=== PATIENT | male | born 1930 | race Caucasian/White ===

== ENCOUNTER → 2016-09-18 | Outpatient (CLI) | payer OTHER, MEDICARE | LOC: FLAB 12:47 → EDSTATUS 12:49 → FIMAGING 12:51 | PROVIDERS: ATTEND Internal Medicine | DX: M51.36 Other intervertebral disc degeneration, lumbar region (principal) ==

== ENCOUNTER → 2017-06-26 | Outpatient (CLI) | payer OTHER, MEDICARE | LOC: FCPNEURO 21:30 | PROVIDERS: ATTEND Psychiatry & Neurology Sleep Medicine | DX: G47.33 Obstructive sleep apnea (adult) (pediatric) (principal) ==

== ENCOUNTER → 2017-10-28 | Outpatient (CLI) | payer OTHER, MEDICARE | LOC: FCPNEURO 21:00 | PROVIDERS: ATTEND Psychiatry & Neurology Sleep Medicine | DX: G47.33 Obstructive sleep apnea (adult) (pediatric) (principal) ==

== ENCOUNTER 2018-03-24 11:08 | Emergency (ER) | payer OTHER, MEDICARE ==
[2018-03-24 11:25] VITALS: BP 153/97
[2018-03-24] MEDS ORDERED: LORazepam 1 MG TAB ONE (11:43)
[2018-03-24] MEDS ORDERED: LORazepam 1 MG TAB PO ONE (11:44)
--- NOTE | 2018-03-24 11:54 | EDPHY ---
H & P Time Seen by Provider: 03/24/18 11:31 HPI/ROS: HPI Anxiety. 88-year-old male by private vehicle with care provider. He comes from the [facility] assisted living facility. He he presents with complaint of anxiety. He has had some depression secondary to his brother dying about 3 months ago. He however denies feeling significantly depressed at this time and denies suicidal ideation. At the [facility] he filled out a questionnaire describing his condition. This triggered a suicide prevention protocol and he automatically had to be seen in the emergency department for further evaluation. He states that he would like treatment for his anxiety. He has no other complaint. He has been on Ativan in the past for his anxiety and this has worked well for him. ROS: Constitutional: No fever, no chills. As above. Eyes: No discharge. No changes in vision. ENT: No sore throat. No nasal congestion or rhinorrhea. Respiratory: No cough. No shortness of breath. Cardiac: No chest pain, no palpitations. Gastrointestinal: No abdominal pain, no vomiting, no diarrhea. Genitourinary: No hematuria. No dysuria or increased frequency with urination. Musculoskeletal: No back pain. No neck pain. No myalgias or arthralgias. Skin: No rashes. Neurological: No headache. No focal weakness or altered sensation. Past medical history: Hyperlipidemia, depression, anxiety, dementia, recent surgery for skin cancer on his left face. Social history: Nonsmoker. No alcohol. Here with care provider from [facility] Physical Exam: General Appearance: Alert, no distress. This patient is responding to questions appropriately and in full sentences. This patient appears well- hydrated and well-nourished. Eyes: Pupils equal and round no pallor or injection. No lid edema, erythema or injection. Respiratory: There are no retractions, lungs are clear to auscultation with good air movement bilaterally. Cardiovascular: Regular rate and rhythm. No murmur. Gastrointestinal: Abdomen is soft and nontender, no masses, bowel sounds normal. No focal tenderness at McBurney's point. No Dailey sign. Neurological: Motor sensory function is grossly intact. Cranial nerves are normal. Skin: Warm and dry, no rashes. Recent surgery on left face. No evidence of infection. Musculoskeletal: Neck is supple and nontender. Extremities are symmetrical. All joints range without pain or impingement. Psychiatric: No agitation. No depression. Database: EKG: Imaging: Procedures: Emergency department course: Triage vital signs reviewed. He is moderately hypertensive. Triage vital signs otherwise normal. This patient is not suicidal. I do not believe he requires Behavioral Health consultation at this time. He was given 1 mg of oral Ativan in the emergency department feared he felt better after this. I will write him for a limited prescription of this medication to treat his anxiety. He will follow up with his primary care physician and psychiatrist for ongoing management. This was discussed with his care provider as well. He feels comfortable returning to the [facility]. He and his care provider understand follow-up. Return to emergency department precautions thoroughly reviewed. Patient was discharged in good condition. Differential Diagnosis: The differential diagnosis on this patient includes but is not limited to anxiety. Suicidal ideation, major depression unlikely. This represents a partial list of diagnoses considered. These considerations are based on history , physical exam, past history, reassessment and diagnostic testing. Smoking Status: Former smoker Constitutional: Initial Vital Signs Temperature (C) 36.4 C 03/24/18 11:23 Heart Rate 80 03/24/18 11:23 Respiratory Rate 18 03/24/18 11:23 Blood Pressure 153/97 H 03/24/18 11:23 O2 Sat (%) 95 03/24/18 11:23 O2 Delivery Mode Room Air Allergies/Adverse Reactions: codeine [Codeine] Allergy (Mild, Verified 03/24/18 11:20) Home Medications: Medication Instructions Recorded Aspirin EC [Aspirin EC 81 mg] 81 mg PO DAILY 06/27/11 Cholecalciferol (Vitamin D3) 10,000 unit PO 06/27/11 [Vitamin D] DONEPEZIL HCL [Aricept] 23 mg PO DAILY 06/27/11 QUETIAPINE FUMARATE [Seroquel Xr] 200 mg PO HS 06/27/11 SIMVASTATIN [Zocor] 80 mg PO DAILY 06/27/11 Venlafaxine Xr [Effexor Xr] 75 mg PO BID 06/27/11 Zolpidem Tartrate [Ambien] 10 mg PO 06/27/11 Cialis 03/24/18 Combigan (*) 03/24/18 LORazepam [Ativan] 1 mg PO Q8PRN PRN #7 tab 03/24/18 Welchol 03/24/18 Zetia 03/24/18 Medical Decision Making - Data Points Medications Given: Discontinued Medications Lorazepam (Ativan) 1 mg PO EDNOW ONE Stop: 03/24/18 11:45 Last Admin: 03/24/18 11:45 Dose: 1 mg Departure - Departure Disposition: Home, Routine, Self-Care Clinical Impression: Anxiety Condition: Good Instructions: Anxiety (ED) Additional Instructions: Read and follow provided instructions. Follow-up with your primary care physician or psychiatrist in 1-2 days for re- evaluation and ongoing treatment of your anxiety. Take medication as prescribed only. Return to the emergency department for worsening symptoms or other serious concerns. Referrals: Carl Smith PA [Primary Care Provider] - As per Instructions Prescriptions: LORazepam [Ativan] 1 mg PO Q8PRN PRN #7 tab PRN Reason: Anxiety
== END 2018-03-24 12:06 | disposition home or self-care (01) ==
DX: F41.9 Anxiety disorder, unspecified (principal); E78.5 Hyperlipidemia, unspecified; F32.9 Major depressive disorder, single episode, unspecified; Z85.828 Personal history of other malignant neoplasm of skin; Z87.891 Personal history of nicotine dependence

== ENCOUNTER 2018-04-02 09:16 | Emergency (ER) | payer OTHER, MEDICARE ==
--- NOTE | 2018-04-02 09:28 | EDPHY ---
H & P Stated Complaint: Increased anxiety and suicidal thoughts fo 3 weeks. Source: Patient - Personal History Current Tetanus Diphtheria and Acellular Pertussis (TDAP): Unsure - Medical/Surgical History Hx Asthma: No Hx Chronic Respiratory Disease: No Hx Diabetes: No Hx Cardiac Disease: No Hx Renal Disease: No Hx Cirrhosis: No Hx Alcoholism: No Hx HIV/AIDS: No Hx Splenectomy or Spleen Trauma: No Other PMH: Hyperlipidemia, anxiety, depression dementia - Social History Smoking Status: Former smoker Time Seen by Provider: 04/02/18 09:26 HPI/ROS: CHIEF COMPLAINT: Referred to ED by outpatient psychiatrist HISTORY OF PRESENT ILLNESS: The patient has a history of dementia and recently has been struggling with depression and anxiety surrounding the of his brother. The patient was seen in the ED several weeks ago with anxiety and reported suicidal thoughts which he denied the time of that visit. He was given a prescription for Ativan. In that time he has established care with psychiatrist and is currently on a medication for depression and anxiety. The patient has been having intermittent psychotic thoughts and continues to endorse intermittent thoughts of suicidality. Patient continues to denies suicidal ideation currently. The patient is accompanied by his caregiver who reports he has been increasingly confused and paranoid. He also has continued to have intermittent suicidal thoughts. In the ED, the patient reports he feels quite anxious. REVIEW OF SYSTEMS: A comprehensive 10 point review of systems is otherwise negative aside from elements mentioned in the history of present illness. (Cory Gallardo) - Physical Exam Exam: General Appearance: Elderly male, no acute distress Eyes: Pupils equal and round no pallor or injection ENT, Mouth: Mucous membranes moist Respiratory: There are no retractions, lungs are clear to auscultation Cardiovascular: Regular rate and rhythm Gastrointestinal: Abdomen is soft and nontender, no masses, bowel sounds normal Neurological: Alert and oriented x3, 5/5 strength all 4 extremities Skin: Warm and dry, no rashes Musculoskeletal: Neck is supple nontender Extremities: symmetrical, full range of motion Psych: Anxious, currently denying suicidal thoughts, does have paranoia (Cory Gallardo) Constitutional: Initial Vital Signs Temperature (C) 36.8 C 04/02/18 09:21 Heart Rate 70 04/02/18 09:21 Respiratory Rate 18 04/02/18 09:21 Blood Pressure 154/112 H 04/02/18 09:21 O2 Sat (%) 94 04/02/18 09:21 O2 Delivery Mode Room Air Allergies/Adverse Reactions: codeine [Codeine] Allergy (Mild, Verified 03/24/18 11:20) Home Medications: Medication Instructions Recorded Aspirin EC [Aspirin EC 81 mg] 81 mg PO DAILY 06/27/11 Cholecalciferol (Vitamin D3) 10,000 unit PO 06/27/11 [Vitamin D] DONEPEZIL HCL [Aricept] 23 mg PO DAILY 06/27/11 QUETIAPINE FUMARATE [Seroquel Xr] 200 mg PO HS 06/27/11 SIMVASTATIN [Zocor] 80 mg PO DAILY 06/27/11 Venlafaxine Xr [Effexor Xr] 75 mg PO BID 06/27/11 Zolpidem Tartrate [Ambien] 10 mg PO 06/27/11 Cialis 03/24/18 Welchol 03/24/18 Zetia 03/24/18 Co Q-10 04/02/18 Ezetimibe 04/02/18 Fergon 04/02/18 Fish Oil 1,000 mg Softgel 04/02/18 Meloxicam 04/02/18 Niacin 04/02/18 Tylenol 04/02/18 Vitamin B Complex 04/02/18 Vitamin C 04/02/18 busPIRone 04/02/18 Medical Decision Making ED Course/Re-evaluation: I reviewed the patient's past medical records. The patient was medically cleared for psychiatric evaluation. He has no evidence of an obvious metabolic derangement or urinary tract infection. The patient was evaluated by Psychiatry and they feel he would be a candidate for inpatient psychiatric hospitalization. Disposition is currently pending. The patient will be turned over to Dr. Heather Bourgeois at shift change (Cory Gallardo) 1500: Patient is signed out to me at change of shift. 1635: I signed a mental health hold. Patient is aware. EKG shows normal sinus rhythm, normal rate, normal axis, prolonged QT. There are no ST or T-wave abnormalities. Placement was arranged. EMTALA completed. (Heather Bourgeois) Differential Diagnosis: Differential diagnosis considered includes dehydration, metabolic abnormality, encephalopathy, depression with psychotic features (Cory Gallardo) - Data Points Laboratory Results: Laboratory Results 04/02/18 10:02 04/02/18 10:02 04/02/18 04/02/18 04/02/18 10:02 10:02 09:58 WBC 7.33 10^3/uL 10^3/uL (3.80-9.50) RBC 5.50 10^6/uL 10^6/uL (4.40-6.38) Hgb 17.2 g/dL g/dL (13.7-17.5) Hct 47.5 % % (40.0-51.0) MCV 86.4 fL fL (81.5-99.8) MCH 31.3 pg pg (27.9-34.1) MCHC 36.2 g/dL g/dL (32.4-36.7) RDW 12.8 % % (11.5-15.2) Plt Count 334 10^3/uL 10^3/uL (150-400) MPV 8.7 fL fL (8.7-11.7) Neut % (Auto) 68.8 % % (39.3-74.2) Lymph % (Auto) 18.0 % % (15.0-45.0) [place] % (Auto) 11.7 % % (4.5-13.0) Eos % (Auto) 0.8 % % (0.6-7.6) Baso % (Auto) 0.4 % % (0.3-1.7) Nucleat RBC Rel Count 0.0 % % (0.0-0.2) Absolute Neuts (auto) 5.04 10^3/uL 10^3/uL (1.70-6.50) Absolute Lymphs (auto) 1.32 10^3/uL 10^3/uL (1.00-3.00) Absolute Monos (auto) 0.86 10^3/uL H 10^3/uL (0.30-0.80) Absolute Eos (auto) 0.06 10^3/uL 10^3/uL (0.03-0.40) Absolute Basos (auto) 0.03 10^3/uL 10^3/uL (0.02-0.10) Absolute Nucleated RBC 0.00 10^3/uL 10^3/uL (0-0.01) Immature Gran % 0.3 % % (0.0-1.1) Immature Gran # 0.02 10^3/uL 10^3/uL (0.00-0.10) Sodium 131 mEq/L L mEq/L (135-145) Potassium 3.9 mEq/L mEq/L (3.3-5.0) Chloride 99 mEq/L mEq/L (97-110) Carbon Dioxide 19 mEq/l L mEq/l (22-31) Anion Gap 13 mEq/L mEq/L (6-14) BUN 14 mg/dL mg/dL (7-23) Creatinine 0.9 mg/dL mg/dL (0.7-1.3) Estimated GFR > 60 Glucose 107 mg/dL H mg/dL (70-100) Calcium 9.3 mg/dL mg/dL (8.5-10.4) Urine Color YELLOW Urine Appearance CLEAR Urine pH 6.0 (5.0-7.5) Ur Specific [place] 1.008 (1.002-1.030) Urine Protein NEGATIVE (NEGATIVE) Urine Ketones NEGATIVE (NEGATIVE) Urine Blood NEGATIVE (NEGATIVE) Urine Nitrate NEGATIVE (NEGATIVE) Urine Bilirubin NEGATIVE (NEGATIVE) Urine Urobilinogen NEGATIVE EU EU (0.2-1.0) Ur Leukocyte Esterase NEGATIVE (NEGATIVE) Urine Glucose NEGATIVE (NEGATIVE) Urine Opiates Screen NEGATIVE (NEGATIVE) Urine Barbiturates NEGATIVE (NEGATIVE) Ur Phencyclidine Scrn NEGATIVE (NEGATIVE) Ur Amphetamine Screen NEGATIVE (NEGATIVE) U Benzodiazepines Scrn NEGATIVE (NEGATIVE) Urine Cocaine Screen NEGATIVE (NEGATIVE) U Marijuana (THC) Screen NEGATIVE (NEGATIVE) Medications Given: Discontinued Medications Lorazepam (Ativan) 1 mg PO EDNOW ONE Stop: 04/02/18 09:47 Last Admin: 04/02/18 10:22 Dose: 1 mg Departure - Departure Disposition: Other Psych, Not [facility] Clinical Impression: Depression, Suicidal ideation Condition: Fair Referrals: Carl Smith PA [Primary Care Provider] - As per Instructions
[2018-04-02] MEDS: LORazepam 1 MG TAB PO ONE (10:22)
[2018-04-02 10:50] LABS: PLATELET COUNT 334 10^3/uL (150-400)
--- NOTE | 2018-04-02 15:26 | ASMTTLCEVL ---
TLC Evaluation - Basic Information Evaluation Start Date and 04/02/2018 11:15 AM Time Hospital Status Answers: M1 Hold 72-hr M1 Hold Start Date 04/02/2018 02:15 PM and Time Patient statement Notes: Im trying to find meaning in my life. Im feeling very anxious. Caregiver reported pt has been making suicidal statements but has not exhibited any intent or followed through with an action of suicide. Narrative Notes: Pt is an 88 year old male who has a hx of dementia and recently has been struggling with depression and anxiety surrounding the of his brother. Chief complaint when presenting to the ED was due to increased anxiety and suicidal thoughts for the past 3 weeks. Pt was seen in the [facility] ED on 03/24 due to anxiety and reported SI which he denied the time of that visit. Pt was discharged from the ED at that time with a Rx for Ativan. Pt has a community Psychiatrist and is prescribed medication for depression and anxiety. Per ED report pt has been having intermittent psychotic thoughts and continues to endorse intermittent thoughts of suicidality. Pt continued to deny SI at this ED visit when questioned by ED Physician. Pt is accompanied by his caregiver who reports he has been experiencing increased confusion and paranoia. It was reported pt has intermittent suicidal thoughts. Pt currently reports feeling anxious. Pts utox was negative for all substances. Labs were unremarkable. Pt is a nonsmoker and has no provided hx of alcohol or other substance abuse. DIAGNOSIS HX Hyperlipidemia, depression, anxiety, dementia, and recent surgery for skin cancer on his left face. Due to his surgery for skin cancer near his nose area of face requiring a bandage pt was unable to wear his CPAP machine which likely interfered with his sleep during the past 2 weeks. Pt scored a 22/30 on MMSE. Diagnosis History Notes: Hyperlipidemia, depression, anxiety, dementia, and recent surgery for skin cancer on his left face. Due to his surgery for skin cancer near his nose area of face requiring a bandage pt was unable to wear his CPAP machine which likely interfered with his sleep during the past 2 weeks. Prior suicide attempts Notes: No reported hx of past suicide attempts. Prior hospitalizations Notes: Pt was hospitalized about 7 years ago due to psychosis linked to a time when he was prescribed steroids for treatment of shingles. Treatment Responses Notes: Pt has been undergoing treatment for depression and axiety for many years. History of violence Notes: There was no report of any hx of violence. Psychiatrist: Dr Uribe Medications (name, dosage, route, freq uency) Notes: Aspirin and Vitamin D3, Aricept 23 mg PO daily, Seroquel 200 mg PO HS, Zocar 80 mg PO daily, Effexor Xr 75 mg PO BID, Ambien 10 mg PO, Cialis, Combigan, Ativan 1 mg Po Q8Prn, Welchol, Zetia. Med reconciliation required. Caregiver indicated pts Effexor was recently increased to 225 mg per day and Seroquel was just stared last night. Allergies/Reaction Notes: Codeine Sleep Notes: Pt has been sleeping erratically. He has a caregiver at night due to agitation. Pt uses a CPAP machine for sleeping. Appetite Notes: Pts appetite was reported as good. Meals are provided by [facility]. Medical/Surgical history Notes: Pt has hx of high cholesterol, HTN, sleep apnea, multiple orthopedic problems. Substance use history (frequency, intensity, his tory, duration) Notes: Pt has no hx of substance abuse problems. Per caregiver pt has not drank alcohol since college. Family composition Notes: Pt has been for 13 years. He has a son and daughter living on the [facility] and another son living on the [facility]. Pts lives in [place]. Need for family Answers: Yes participation in patient's care Family psychiatric/substance abuse history Notes: Pts mother had hx of severe depression. Developmental history Notes: There was no report of any developmental delays. Caregiver indicated pt has a long hx of anxiety and depression. Abuse concerns Answers: None Marital status/children Notes: Pt was 13 years ago. He is the father of 3 adult children. Living situation Notes: Pt is a resident of the [facility] where his meals, medications and supervision is provided. Sexual history/orientation Notes: Pt is not in a relationship. Pt is heterosexual. Peer support/family strengths Notes: Pt was described as social with his other peers at the [facility]. Education level/history Notes: Pt completed his Bachelors degree. Work history Notes: Pt is a retired real estate listing consultant. Notes: No reported Legal Notes: There was no report of any legal problems. Anglican/Spiritual Notes: Pt is a [employer]. Leisure Notes: It was described that pt typically is active in the [facility] community. Collateral Notes: [email or web address] caregiver, Fernandez who has been a sawdust drier of pt for the past 13 years. Patient's strengths Answers: Honest (Please select at least TWO strengths): Intelligent Supportive Family Willingness [facility] Evaluation - Mental Status Exam Appearance: Answers: Appropriate Eye Contact: Answers: Good/Direct Intermittent Mood: Answers: Depressed Sad Affect: Answers: Apprehensive Calm Flat Sad Behavior: Answers: Cooperative Speech: Answers: Relevant Thought Process: Answers: Oriented Insight: Answers: Fair Judgement: Answers: Fair Depression Answers: Difficulty Concentrating Signs/Symptoms: Diminished Interest Diminished Pleasure Flat Affect Hopelessness Sad Mood Anxiety Signs/Symptoms Answers: Generalized Anxiety Hallucinations: Answers: None Current Stage of Change Answers: Action Pt reported to have Answers: No suicidal/self-injuring ideation/behavior? Pt reported to be making Answers: Yes suicidal/self-injuring threats? Pt reported to have Answers: No aggression/assault ideation/behavior? Pt reported to be making Answers: No aggression/assault threats? Pt exhibits inability to Answers: No care for self/grave disability? Ideation/behavior is Answers: No chronic? Patient has a specific Answers: No plan? Pt has access to means to Answers: No execute the plan? Ideation involves Answers: No serious/lethal intent? Ideation has Answers: No delusional/hallucinatory content? History of Answers: Yes suicidal/self-injuring ideation, behavior, or threats? History of Answers: No aggressive/assaultive ideation, behavior, or threats? History of serious Answers: No physical harm to self/others while in treatment setting? [facility] Evaluation - Suicide/Homicide Risk Suicide Risk Factors: Answers: Anxiety/Panic, Severe Global Insomnia Hopelessness Major Depression None Current Suicidal Answers: No Ideation? Current Suicidal Ideation Answers: Yes in the Past 48 Hours? Current Suicidal Ideation Answers: No in the Past Month? Suicide Internal Answers: Absence of Psychosis Protective Factors: Suicide External Answers: Positive Therapeutic Protective Factors: Relationships Ranking of patient's Answers: Moderate suicidal risk: Ranking of patient's Answers: Low homicidal risk: TLC Evaluation - Wrap-up AXIS I Diagnosis (include DSM-V and ICD-10 codes), must also be entered in [employer], which is the source of truth. 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
--- NOTE | 2018-04-02 16:17 | ASMTLCPROG ---
Notes Note: Notes: TLC in process of bed search. Referrals were sent to [facility]. Was notified no bed available today at [facility]. Awaiting dispo. at other [facility]. units. Date Signed: 04/02/2018 04:15 PM Electronically Signed By:Tasha Marion
--- NOTE | 2018-04-02 18:24 | ASMTTCLDSP ---
TLC Discharge Disposition Disposition: Answers: Transfer Disposition Notes: Notes: In consultation with [facility] ED Physician, Freddie Gallardo MD and labor commissioner Psychiatrist, Ravi Monae, both concurred that pt appears to meet 27-65 criteria requiring psychiatric hospitalization as pt appears to be an imminent risk of harm to self due to a mental illness. Hold initiated by: Answers: Other Notes: TLC For Transfers, Accepting [facility] Facility: For Transfers, Accepting Dr Sosa Psychiatrist: For Transfers, Reason [facility] bed Patient is Being Transferred: Date Signed: 04/02/2018 06:23 PM Electronically Signed By:Tasha Marion
[2018-04-02 20:04] VITALS: BP 130/84
--- NOTE | 2018-04-02 23:20 | CPEKG ---
Test Reason : OPEN Blood Pressure : / mmHG Vent. Rate : 096 BPM Atrial Rate : 096 BPM P-R Int : 215 ms QRS Dur : 098 ms QT Int : 370 ms P-R-T Axes : 038 067 008 degrees QTc Int : 468 ms Sinus rhythm Prolonged CA interval Confirmed by Heather Bourgeois ([id number]) on 04/02/2018 11:19:36 PM Referred By: Confirmed By:Heather Bourgeois
== END 2018-04-02 20:04 ==
DX: F32.9 Major depressive disorder, single episode, unspecified (principal)
CPT/HCPCS: 80305

== ENCOUNTER 2018-06-14 11:49 | Emergency (ER) | payer OTHER, MEDICARE ==
--- NOTE | 2018-06-14 12:06 | EDPHY ---
H & P Stated Complaint: anxiety, poss arrythmia Time Seen by Provider: 06/14/18 11:59 HPI/ROS: CHIEF COMPLAINT: Anxiety, palpitations HISTORY OF PRESENT ILLNESS: The patient presents to the ED with complaints of anxiety palpitations. The patient has a history of anxiety and suicidal thoughts. He actually had involuntary psychiatric hospitalization for 2 weeks time. The patient denies any suicidal thoughts currently. He reports that he is taking no medications for management of his anxiety. The patient denies any fever, cough or congestion. The patient denies additional acute complaints. The patient was brought in by paramedics and was noted to have frequent PACs in route. REVIEW OF SYSTEMS: A comprehensive 10 point review of systems is otherwise negative aside from elements mentioned in the history of present illness. Source: Patient Exam Limitations: Clinical condition - Personal History Current Tetanus Diphtheria and Acellular Pertussis (TDAP): Unsure - Medical/Surgical History Hx Asthma: No Hx Chronic Respiratory Disease: No Hx Diabetes: No Hx Cardiac Disease: No Hx Renal Disease: No Hx Cirrhosis: No Hx Alcoholism: No Hx HIV/AIDS: No Hx Splenectomy or Spleen Trauma: No Other PMH: Hyperlipidemia, anxiety, depression, dementia, sleep apnea - Social History Smoking Status: Former smoker - Physical Exam Exam: General Appearance: Alert, no distress, slightly anxious Eyes: Pupils equal and round no pallor or injection ENT, Mouth: Mucous membranes moist Respiratory: There are no retractions, lungs are clear to auscultation Cardiovascular: Regular rate and rhythm Gastrointestinal: Abdomen is soft and nontender, no masses, bowel sounds normal Neurological: A&O, normal motor function, normal sensory exam, normal cranial nerves Skin: Warm and dry, no rashes Musculoskeletal: Neck is supple nontender Extremities: symmetrical, full range of motion Psychiatric: Patient is oriented X 3, there is no agitation, denies suicidal or homicidal ideation, does report symptoms of anxiety Constitutional: Initial Vital Signs Temperature (C) 36.7 C 06/14/18 11:57 Heart Rate 80 06/14/18 11:57 Respiratory Rate 16 06/14/18 11:57 Blood Pressure 177/111 H 06/14/18 11:57 O2 Sat (%) 93 06/14/18 11:57 O2 Delivery Mode Room Air Allergies/Adverse Reactions: codeine [Codeine] Allergy (Mild, Verified 03/24/18 11:20) Home Medications: Medication Instructions Recorded Aspirin EC [Aspirin EC 81 mg] 81 mg PO DAILY 06/27/11 Cholecalciferol (Vitamin D3) 10,000 unit PO 06/27/11 [Vitamin D] DONEPEZIL HCL [Aricept] 23 mg PO DAILY 06/27/11 QUETIAPINE FUMARATE [Seroquel Xr] 200 mg PO HS 06/27/11 SIMVASTATIN [Zocor] 80 mg PO DAILY 06/27/11 Venlafaxine Xr [Effexor Xr] 75 mg PO BID 06/27/11 Zolpidem Tartrate [Ambien] 10 mg PO 06/27/11 Cialis 03/24/18 Welchol 03/24/18 Zetia 03/24/18 Co Q-10 04/02/18 Ezetimibe 04/02/18 Fergon 04/02/18 Fish Oil 1,000 mg Softgel 04/02/18 Meloxicam 04/02/18 Niacin 04/02/18 Tylenol 04/02/18 Vitamin B Complex 04/02/18 Vitamin C 04/02/18 busPIRone 04/02/18 Medical Decision Making - Diagnostics EKG Interpretation: EKG: Complete interpretation has been separately recorded in the [facility] archive. Summary impression: Sinus rhythm, rate 89 ED Course/Re-evaluation: I reviewed the patient's past medical records. The patient was placed on a energy risk management analyst. Aside from PACs and no significant arrhythmia was noted. The patient was given half a mg of Ativan for treatment of his anxiety. Re-evaluated the patient at 1:00 p.m.. He is currently feeling better. The patient does have prescription for clonazepam at home. His 24 hr home care provider is now in the emergency department. They have no concerns about the patient's safety. Patient would like to be discharged home. He is given customary aftercare instructions and return precautions. Differential Diagnosis: Differential diagnosis considered includes anxiety, arrhythmia, palpitations - Data Points Medications Given: Discontinued Medications Lorazepam (Ativan) 0.5 mg PO EDNOW ONE Stop: 06/14/18 12:23 Last Admin: 06/14/18 12:40 Dose: 0.5 mg Departure - Departure Disposition: Home, Routine, Self-Care Clinical Impression: Anxiety, Palpitations Condition: Good Instructions: Heart Palpitations (ED) Additional Instructions: 1. Please return to the ED for any recurrent symptoms or other concerns. 2. Please follow-up with your primary care provider as needed. Referrals: Carl Smith PA [Physician Telephone Mechanic] - As per Instructions
--- NOTE | 2018-06-14 12:07 | CPEKG ---
Test Reason : OPEN Blood Pressure : / mmHG Vent. Rate : 089 BPM Atrial Rate : 090 BPM P-R Int : 251 ms QRS Dur : 097 ms QT Int : 367 ms P-R-T Axes : 016 056 -05 degrees QTc Int : 447 ms Sinus rhythm Prolonged [place] interval Borderline T abnormalities, inferior leads Confirmed by Cory Gallardo ([id number]) on 06/14/2018 12:07:03 PM Referred By: Confirmed By:Cory Gallardo
[2018-06-14] MEDS ORDERED: LORazepam 0.5 MG TAB PO ONE (12:22)
[2018-06-14 13:44] VITALS: BP 125/84
== END 2018-06-14 13:43 | disposition home or self-care (01) ==
LOC: EDUNIT#
DX: F41.9 Anxiety disorder, unspecified (principal); R00.2 Palpitations; F32.9 Major depressive disorder, single episode, unspecified